=== PATIENT | male | born 1960 | race Caucasian/White ===

== ENCOUNTER 2017-03-12 15:50 | Inpatient (IN) | payer BC ==
[~2017-03-12] VITALS: Ht 170.2 cm; Wt 95.5 kg
[2017-03-12 16:39] LABS: APPEARANCE CLEAR (CLEAR); BILIRUBIN NEGATIVE (NEGATIVE); COLOR YELLOW (YELLOW); GLUCOSE NEGATIVE (NEGATIVE); KETONE NEGATIVE (NEGATIVE); NITRITE NEGATIVE (NEGATIVE); PROTEIN NEGATIVE (NEGATIVE); UROBILINOGEN NORMAL (NORMAL)
[2017-03-12 16:40] LABS: HEMATOCRIT 43.1 % (42.0-54.0); HEMOGLOBIN 13.9 g/dL (13.5-17.5); MCH 27.1 pg (26.0-34.0); MCHC 32.3 g/dL (31.0-37.0); MCV 84.2 fL (80.0-100.0); MEAN PLATELET VOLUME 9.4 fL (7.4-10.4); PLATELET COUNT 290 10x3/uL (130-400); RBC 5.12 10x6/uL (4.20-6.10); RDW 17.3 % (11.5-14.5); WBC 23.9 10x3/uL (4.8-10.8)
[2017-03-12 16:57] LABS: UDS - AMPHET POSITIVE QUAL (NEGATIVE); UDS - BARB NEGATIVE QUAL (NEGATIVE); UDS - BENZO POSITIVE QUAL (NEGATIVE); UDS - COCAINE NEGATIVE QUAL (NEGATIVE); UDS - OPIATE NEGATIVE QUAL (NEGATIVE); UDS - PCP NEGATIVE QUAL (NEGATIVE); UDS - THC POSITIVE QUAL (NEGATIVE)
[2017-03-12 17:06] LABS: ALBUMIN 3.1 g/dL (3.4-5.0); ANION GAP 12.6 mmol/L (8-16); BILIRUBIN - TOTAL 0.62 mg/dL (0.2-1.3); CALCIUM 9.9 mg/dL (8.5-10.1); CREATININE - SERUM 1.9 mg/dL (0.6-1.3); POTASSIUM - SERUM 3.6 mmol/L (3.5-5.1); PROTEIN - SERUM 7.3 g/dL (6.4-8.2)
[2017-03-12 18:09] LABS: EOSINOPHILS 3 % (0-7); LYMPHOCYTES 8 % (15-50); MONOCYTES 3 % (2-11); NEUTROPHILS 79 % (40-80); PLATELET ESTIMATE NORMAL
[2017-03-12 21:03] VITALS: BP 190/94; BP 93/57
--- NOTE | 2017-03-12 21:11 | NUR ---
RECIEVED PATIENT HE IS ALERT AND ORIENTED X'S 4. NO SIGNS OF DISTRESS. HE REQUESTED HIS AMBIEN. PAGED HAWK CHRISTINE, ON-CALL FOR .
--- NOTE | 2017-03-12 21:40 | NUR ---
PATIENT AND HIS STATED HIS BP NORMALLY RUNS IN THE LOW NORMAL RANGE. PATIENT STATED HIS SBP IS NORMALLY ABOUT 100.
[2017-03-13 00:37] VITALS: BP 90/57
[2017-03-13 01:19] VITALS: Ht 170.2 cm; Wt 95.5 kg
--- NOTE | 2017-03-13 04:24 | NUR ---
PATIENT STATED "I HAVE A HEADACHE AND KIDNEY PAIN IN MY BACK." OFFERED PATIENT COFFEE FOR HIS HEADACHE, HE REFUSED. OFFERED HIM AN ICE PACK, HE REFUSED. OFFERED HIM A HOT PACK FOR HIS HEADACHE AND HIS BACK PAIN, HE REFUSED. HE STATED "CAN I NOT HAVE SOME TYLENOL?" I STATED "YES LET ME CALL THE DOCTOR." PAGED HAWK CHRISTINE.
[2017-03-13] MEDS ORDERED: AMBIEN10 MG PO (04:40)
[2017-03-13] MEDS ORDERED: SEROQUEL XR300 MG PO (04:41)
[2017-03-13] MEDS ORDERED: XANAX1 MG PO (04:42)
[2017-03-13] MEDS ORDERED: ACETAMINOPHEN500 M1 PO (04:43)
[2017-03-13 05:00] VITALS: BP 108/64
--- NOTE | 2017-03-13 06:00 | NUR ---
PUTTING TOGETHER PATIENT'S PAPER CHART, THERE IS A MEDICATION LIST WROTE ON NOTEBOOK PAPER. THE LIST CONTAINS SEVERAL MEDICATIONS THAT THE PATIENT DID NOT LIST WHEN HE TOLD ME HIS MEDICATION LIST. WENT IN PATIENT'S ROOM, I STATED ", I FOUND A MEDICATION LIST IN YOUR CHART THAT WAS SENT FROM THE ER, IT HAS SOME MORE MEDICATIONS LISTED ON IT THAT YOU DID NOT NAME EARLIER, SO I NEED TO GO THROUGH THE LIST WITH YOU." NAMED OFF THE MEDICATIONS WITH THE PATIENT ONE BY ONE, ASKED HIM 'ARE YOU TAKING...' ABOUT EACH MEDICATION. HE STATED "I DO NOT KNOW IF I AM TAKING THAT OR NOT" ABOUT ALL OF THE MEDICATIONS, EXCEPT CYMABLTA, HE SAID "THAT IS ONE I JUST STARTED, I COULDN'T REMEMBER THAT ONE." I STATED "YOU NAMED OFF 3 EARILIER THAT YOU TAKE, HOW MANY PILLS DO YOU TAKE PER DAY?" HE STATED "I DO NOT KNOW. MY PROBABLY WROTE THAT LIST." I STATED "WILL YOUR BE BACK LATER?" HE STATED "YES." I SAID "OKAY, I WILL LET THE NURSE THAT TAKES OVER THIS MORNING KNOW THAT WE NEED THE REST OF YOUR MEDICATION LIST, SO WHEN YOUR COMES TODAY SHE CAN ASK YOUR ." HE STATED "I DO NOT APPRECIATE HOW YOU JUST BARGED IN MY DOOR AND STARTED YELLING AT ME." I STATED "I DID NOT YELL AT YOU." HE STATED "YES YOU DID." I STATED "I AM SORRY THAT IT SEEMED THAT WAY TO YOU. IS THERE ANYTHING YOU NEED RIGHT NOW?" PATIENT STATED "NO."
--- NOTE | 2017-03-13 06:10 | NUR ---
PATIENT PUSHED HIS CALL LIGHT, ANSWERED CALL LIGHT. PATIENT PACKING UP HIS STUFF AND GETTING DRESSED. HE STATED "I AM LEAVING. I AM A GROWN MAN, I AM NOT A CHILD AND I DO NOT DESERVE TO BE TREATED THAT WAY. YOU BARGED IN WHILE I WAS SLEEPING JUST TO YELL AT ME ABOUT MY MEDICATIONS. WHEN YOU COULD NOT EVEN GET MY MEDICINE FOR ME LAST NIGHT. IF YOU GUYS ARE NOT COMPETENT EVEN TO GET ME MY MEDICATION AT THE TIME I GET HERE, AND GET ME MY NIGHT TIME MEDS WHEN I NEED THEM, SO THAT I COULD GET MY SLEEP MEDICATION THEN I SHOULD JUST GO SOMEWHERE ELSE. YOU TOLD ME ALL YOUR LITTLE BOUNDARIES AND EVERYTHING AND I FOLLOWED THEM AND YOU COULD NOT EVEN GET ME MY MEDICATION. THEN YOU WANT TO WAKE ME UP AND YELL AT ME BECAUSE I COULD NOT REMEMBER WHAT MEDICATION I AM ON. YOU TALK TO ME LIKE I AM AN OLD MAN. I HAD A CONCUSSION THAT CAUSES PROBLEMS WITH MY MEMORY. ITS NOT MY FAULT I CAN'T REMEMBER WHAT MEDS I AM ON. I AM LEAVING BECAUSE OF YOU, BECAUSE I AM NOT GOING TO BE TREATED THAT WAY." I STATED "CAN WE TALK FOR JUST A MINUTE?" HE STATED "NO. ASK MY , WHEN I MAKE UP MY MIND NO ONE CAN CHANGE IT." I STATED "LISTEN WHEN YOU CAME INTO THE ER YOUR LACTIC ACID LEVEL WAS REALLY HIGH, AND YOUR WHITE CELL COUNT WAS REALLY HIGH. THAT CAN MEAN YOU HAVE A REALLY BAD INFECTION AND YOU COULD GET SEPTIC." HE STATED "I DON'T CARE. I AM LEAVING, AND IT IS ALL YOUR FAULT." I STATED "DO NOT LEAVE JUST BECAUSE YOU DO NOT WANT ME TO BE YOUR NURSE, I CAN GET YOU A NEW NURSE." HE STATED "NO, IT'S TOO LATE, YOU SHOULD HAVE THOUGHT ABOUT THAT BEFORE YOU STARTED YELLING AT ME." I STATED "I DID NOT YELL AT YOU. I CAME IN TO ASK YOU QUESTIONS ABOUT YOUR MEDICATION LIST, THAT WAY IT WILL BE ACCURATE WHEN THE DOCTOR COMES SO THEY CAN SEE ALL OF YOUR HOME MEDS WHEN THEY ARE RESTARTING YOUR MEDS." HE STATED "IF YOU CARED SO MUCH ABOUT MY MEDS YOU WOULD HAVE GOT ME MY SLEEP MEDICATION. YOU COULD HAVE GOTTEN IT WHEN YOU CALLED ABOUT THE TYLENOL." I STATED "IF I WOULD HAVE KNOWN THE AMBIEN WAS THAT IMPORTANT TO YOU I WOULD HAVE KEPT PAGING THE NURSE PRACTITIONER. I TOLD YOU THAT THE NURSE PRACTIONER HAD NOT CALLED BACK, AND I ASKED YOU IF YOU WOULD BE OKAY WITHOUT THE AMBIEN [place] OR IF I SHOULD PAGE AGAIN, AND YOU SAID 'NO I WILL BE FINE.'. HE STATED "THAT IS BECAUSE I WAS TRYING TO BE NICE TO YOU AND NOT BE PUSHY." I STATED "I AM SORRY ABOUT THAT." HE STATED "IT DOES NOT MATTER NOW. I AM LEAVING." I STATED "DO YOU WANT TO TALK TO MY CHARGE NURSE, OR MY DESK MAKER?" HE STATED "NO." I STATED "ARE YOU SURE YOU DO NOT WANT ANOTHER NURSE? I WILL BE LEAVING IN AN HOUR ANYWAYS." HE STATED "NO, I AM DONE." CAME OUT OF PATIENT'S ROOM AND ASKED MALU OSORIO IF SHE CAN TALK TO THE PATIENT. SHE AGREED AND WENT IN PATIENT'S ROOM. CALLED DESK MAKER, ASKED IF SHE COULD COME UP TO TALK TO HIM, WHILE I WAS ON THE PHONE, THE PATIENT WALKED OUT OF THE ROOM, JO SAID HE IS LEAVING. PRINTED THE AMA FORM.
--- NOTE | 2017-03-13 06:15 | NUR ---
PATIENT OUT IN THE [place], WALKING AROUND TRYING TO FIND THE EXIT. MYSELF AND ESTHER TRIED TO GET PATIENT TO LET A NURSE TAKE OUT HIS IV. HE STATED "NO, I DO NOT CARE I AM LEAVING RIGHT NOW." I SAID "WHEN PATIENT'S LEAVE WITH IVS OUT PROTOCOL IS TO CALL THE POLICE TO TRY TO GET THE PATIENT TO COME BACK SO WE CAN TAKE OUT THE IV." PATIENT STATED "OH, NOW YOU ARE GOING TO CALL THE POLICE ON ME?" I STATED "YOU ARE NOT LISTENING TO ME. WE NEED TO TAKE THE IV OUT."
--- NOTE | 2017-03-13 06:30 | NUR ---
I STATED "IF YOU LEAVE THE IV IN, IT COULD GET INFECTED OR IT COULD BREAK OFF INSIDE OF YOU. JUST PLEASE LET US TAKE IT OUT." PATIENT GRABBED THE TAPE AND RIPPED THE IV OUT OF HIS ARM, BLOOD STARTED POURING INTO THE FLOOR. PATIENT ALLOWED ESTHER TO PUT A BANDAID ON HIS ARM. PATIENT SIGNED AN 'X' ON THE AMA FORM AND WALKED OUT.
--- NOTE | 2017-03-13 08:11 | NUR ---
PT NOT AVAILABLE IN ROOM FOR AM TX
== END 2017-03-13 06:30 | disposition left against medical advice (07) | DRG 948 ==
LOC: D.ER 15:50 → D.MS 18:18
PROVIDERS: Emergency Medicine; ADMIT Family Medicine
DX: R41.9 Unspecified symptoms and signs involving cognitive functions and awareness (principal); R50.9 Fever, unspecified; F22 Delusional disorders; R51 Headache

== ENCOUNTER → 2017-10-21 13:39 | Outpatient (CLI) | payer BC ==
[2017-03-13 01:19] VITALS: BMI 32.9
[~2017-10-21 13:39] MED LIST: ACETAMINOPHEN500 M1 PO; AMBIEN10 MG PO; SEROQUEL XR300 MG PO; XANAX1 MG PO
== END | disposition home or self-care (01) ==
LOC: D.US 13:39
DX: N18.3 Chronic kidney disease, stage 3 (moderate) (principal); N13.9 Obstructive and reflux uropathy, unspecified; Z68.33 Body mass index [BMI] 33.0-33.9, adult